=== PATIENT | male | born 1985 | race Two or more races ===

== ENCOUNTER 2019-12-16 08:30 | Inpatient (IN) | payer OTHER ==
[~2019-12-16] VITALS: Ht 180.3 cm; Wt 89.4 kg
[2020-01-09] VITALS (17 sets, daily range): BP systolic 89–138; BP diastolic 45–75
[2020-01-09] MEDS ORDERED: ceFAZolin sod 2 GM in NS 55 ML IVPB ONE (05:30)
[2020-01-09] MEDS ORDERED: fentaNYL 100 mcg/2 mL IV ONE (08:41)
[2020-01-09] MEDS ORDERED: Midazolam 2mg/2ml Inj ONE (08:41)
[2020-01-09] MEDS ORDERED: Lidocaine 1% MPF 10mg/ml 5ml ONE (08:48)
[2020-01-09] MEDS ORDERED: Gelfoam Size TOPIC ONE (09:37)
[2020-01-09] MEDS ORDERED: Thrombin 5000 units TOPIC ONE (09:37)
[2020-01-09] MEDS ORDERED: Bacitracin 50000 Units Vial ONE (09:37)
[2020-01-09] MEDS ORDERED: Rocuronium Bromide 100mg/10ml Inj IV ONE (09:41)
[2020-01-09] MEDS ORDERED: NS Irrig 1000ml ONE (10:00)
[2020-01-09] MEDS ORDERED: Sterile Water Irrig 1000ml IRRIG ONE (10:00)
[2020-01-09] MEDS ORDERED: LR 1000ml ONE (10:00)
[2020-01-09] MEDS ORDERED: Succinylcholine 20mg/ml 10ml vial ONE (10:00)
[2020-01-09] MEDS ORDERED: propofoL 1,000mg/100ml IV ONE (10:00)
--- NOTE | 2020-01-09 10:00 | Pre-Procedure Note/Attestation ---
Pre-Procedure Note/Attestation Complete Prior to Procedure Planned Procedure: not applicable Procedure Narrative: Cervical 56 anterior cervical discectomy and fusion Indications for Procedure Pre-Operative Diagnosis: C56 herniation Attestation I attest that I discussed the nature of the procedure; its benefits; risks and complications; and alternatives (and the risks and benefits of such alternatives ), prior to the procedure, with the patient (or the patient's legal parts representative). I attest that, if there was a reasonable possibility of needing a blood transfusion, the patient (or the patient's legal parts representative) was given the [facility] standardized written summary, pursuant to the [place] Blood Safety Act ([place] Health and Safety Code # 1645, as amended). I attest that I re-evaluated the patient just prior to the surgery and that there has been no change in the patient's H&P, except as documented below: Esequiel Moy MD Jan 09, 2020 10:00
--- NOTE | 2020-01-09 10:02 | Brief Operative Note ---
Immediate Post Operative Note Operative Note Chief Complaint: herniation and radiculopathy Pre-op Diagnosis: C56 herniation Procedure: Cervical 56 anterior cervical discectomy and fusion Post-op Diagnosis: same as pre-op Findings: consistent w/pre-op dx studies Surgeon: Farzaneh Contact Printer Dry Film: Khari Anesthesiologist: MYLES Anesthesia: general Specimen: none Complications: none Condition: stable Fluids: IVF Estimated Blood Loss: minimal Drains: none Implant(s) used?: Yes - Nuvasive cervical c interlock sz6, screws x3 13mm, osteocell `1cc Esequiel Moy MD Jan 09, 2020 10:02
[2020-01-09] MEDS ORDERED: Morphine Sulfate 4mg/ml Inj (IV USE ONLY) IV PRN (10:15)
[2020-01-09] MEDS ORDERED: Morphine Sulfate 2mg/ml Inj(IV/IM USE ONLY) IV PRN (10:15)
[2020-01-09] MEDS ORDERED: HYDROcodone/Acetamin 7.5/325 tab ORAL PRN ×2 (10:15)
[2020-01-09] MEDS ORDERED: HYDROcodone/Acetamin 5/325 tab ORAL PRN (10:15)
[2020-01-09] MEDS ORDERED: Metoclopramide 10mg/2ml Inj IVP PRN ×2 (10:15→11:15)
[2020-01-09] MEDS ORDERED: Naloxone 0.4mg/ml Inj IVP PRN (10:15)
[2020-01-09] MEDS ORDERED: Milk of Magnesia 30ml Ud ORAL PRN (10:15)
[2020-01-09] MEDS ORDERED: Phenylephrine 10mg/ml Vial ONE (10:36)
--- NOTE | 2020-01-09 10:50 | NUR ---
CASE MANAGEMENT:REVIEW 34 YR OLD MALE HERE FOR ELECTIVE SURGERY SI: HERNIATION AND RADICULOPATHY 97.4 61 18 113/63 98% ON RA IS: C5-6 ANTERIOR CERVICAL DISCECTOMY AND FUSION IV ANCEF Q8HRS : CURRENTLY IN SURGERY
[2020-01-09] MEDS ORDERED: Morphine Sulfate 10mg/ml Inj ONE (10:58)
[2020-01-09] MEDS ORDERED: Neostigmine 1mg/ml 10ml Inj ONE (11:00)
[2020-01-09] MEDS ORDERED: Sodium Chloride 10ml vial INJ ONE (11:00)
[2020-01-09] MEDS ORDERED: Glycopyrrolate 0.2mg/ml 1ml Vial ONE (11:01)
[2020-01-09] MEDS ORDERED: LR 1000ml 1,000 ML IVLG SCH (11:13)
--- NOTE | 2020-01-09 11:13 | Anethesia Preoperative Eval ---
Anesthesia Pre-op PMH/ROS General Date of Evaluation: Jan 09, 2020 Time of Evaluation: 10:02 Anesthesiologist: Michael ASA Score: ASA 2 Mallampati Score Class I : Soft palate, uvula, fauces, pillars visible Class II: Soft palate, uvula, fauces visible Class III: Soft palate, base of uvula visible Class IV: Only hard plate visible Mallampati Classification: Class II Surgeon: Farzaneh Diagnosis: Cervical radiculopathy Surgical Procedure: ACDF Anesthesia History: none Family History: no anesthesia problems Allergies: Coded Allergies: ACETAMINOPHEN (Verified Adverse Reaction, Intermediate, VOMTING, 01/08/20) OXYCODONE (Verified Adverse Reaction, Intermediate, VOMTING, 01/08/20) Medications: see eMAR Patient NPO?: Yes Past Medical History Cardiovascular: Denies: HTN, CAD, IA, valve dz, arrhythmia, other Pulmonary: Denies: asthma, COPD, YANNA, other Gastrointestinal/Genitourinary: Reports: GERD; Denies: CRI, ESRD, other Neurologic/Psychiatric: Reports: other; Denies: dementia, CVA, depression/anxiety, TIA Endocrine: Denies: DM, hypothyroidism, steroids, other HEENT: Denies: cataract (L), cataract (R), glaucoma, BAD RIVER BAND (L), BAD RIVER BAND (R), other Hematology/Immune: Denies: anemia, DVT, bleeding disorder, other Musculoskeletal/Integumentary: Denies: OA, RA, DJD, DDD, edema, other PMH Narrative: as above PSxH Narrative: ADR C5-C6, splenectomy,Partial nephrectomy Anesthesia Pre-op Phys. Exam Physician Exam Last Vital Signs Date Time Temp Pulse Resp B/P (MAP) Pulse Ox O2 Delivery O2 Flow Rate FiO2 01/09/20 07:50 Room Air 01/09/20 07:17 97.4 61 18 113/63 (80) 98 Constitutional: NAD Neurologic: CN 2-12 intact Cardiovascular: RRR, no M/R/G Respiratory: CTA Gastrointestinal: S/NT/ND Airway Exam Mallampati Score: Class II MO: full Neck: stiff ROM: limited Teeth: intact Dentures: no upper, no lower Anesthesia Pre-op A/P Labs see chart Risk Assessment & Plan Assessment: ASA 2 Plan: GA with ETT neuromonitring Status Change Before Surgery: No Pre-Antibiotics Drug: Ancef 2gr. Given Within 1 Hr of Incision: Yes Time Given: 10:50 Trey Anaya MD Jan 09, 2020 11:13
[2020-01-09] MEDS ORDERED: Ketorolac 30mg Inj IV PRN (11:15)
[2020-01-09] MEDS ORDERED: Meperidine 25mg/0.5ml Inj (FOR RIGORS ONLY) IV PRN (11:15)
[2020-01-09] MEDS ORDERED: DiphenhydrAMINE 50mg/ml Inj IVP PRN (11:15)
--- NOTE | 2020-01-09 12:03 | Immediate Post-Op Evaluation ---
Immediate Post-Op Evalulation Immediate Post-Op Evalulation Procedure: ACDF C5-C6 Date of Evaluation: Jan 09, 2020 Time of Evaluation: 12:02 IV Fluids: 800 Blood Products: none Estimated Blood Loss: <50 Urinary Output: none Blood Pressure Systolic: 132 Blood Pressure Diastolic: 56 Pulse Rate: 86 Respiratory Rate: 20 O2 Sat by Pulse Oximetry: 99 Temperature (Fahrenheit): 97.6 Pain Score (1-10): 1 Nausea: No Vomiting: No Complications none Patient Status: reacts, patent, extubated, none Hydration Status: adequate Trey Anaya MD Jan 09, 2020 12:03
--- NOTE | 2020-01-09 13:45 | NUR ---
NURSE NOTES: Vickie Rivas RN brought patient by bed in stable condition. Alert and oriented x4. Complain of moderate pain and pain medication given by PACU nurse. Will continue to monitor. Skin intact and dry. Surgical dressing intact and dry. IV dressing intact and dry. Belonging checked. Bed lowest position. Call light within reach. Will continue to monitor.
[2020-01-09] MEDS ORDERED: Chloraseptic Spray 20mL Bottle ORAL PRN (14:00)
[2020-01-09] MEDS: NS w/KCl 20mEq 1000ml 1,000 ML IV SCH (15:16)
[2020-01-09] MEDS ORDERED: LR 1000ml 1,000 ML IV ONE (15:30)
[2020-01-09] MEDS: Morphine Sulfate 4mg/ml Inj (IV USE ONLY) IV PRN ×3 (15:38→22:33)
--- NOTE | 2020-01-09 15:43 | NUR ---
NURSE NOTES: Patient complain of pain 9/10 on surgical site and request pain medication. BP-89/58, Pulse-70 and no signs and symptoms of distress. Spoke to regarding blood pressure and pain medication. Per : Ok to give pain medication, lactated ringers 1 liter bolus run over 1hr. Order noted and carried out.
[2020-01-09] MEDS: Docusate 100mg cap ORAL SCH (18:36)
[2020-01-09] MEDS: ceFAZolin sod 1 GM in D5W 55 ML IV SCH (18:36)
--- NOTE | 2020-01-09 18:42 | NUR ---
NURSE NOTES: Patient voided 300ml yellow urine.
--- NOTE | 2020-01-09 19:29 | Cardiology Progress Note ---
Assessment/Plan Assessment/Plan [id number] ivf pain meds home in am if all ok Objective Last 24 Hour Vital Signs Date Time Temp Pulse Resp B/P (MAP) Pulse Ox O2 Delivery O2 Flow Rate FiO2 01/09/20 15:45 97.5 70 20 99/54 (69) 95 01/09/20 14:45 97.4 70 18 89/58 (68) 97 01/09/20 14:15 97.4 76 18 100/58 (72) 97 01/09/20 13:45 97.4 75 18 106/52 (70) 97 01/09/20 13:35 97.4 73 16 101/51 97 Nasal Cannula 3 01/09/20 13:30 97.6 01/09/20 13:15 72 13 109/58 96 Nasal Cannula 3 01/09/20 13:00 75 12 101/51 96 Nasal Cannula 3 01/09/20 12:50 65 13 102/52 97 Nasal Cannula 3 01/09/20 12:40 70 13 102/62 95 Nasal Cannula 3 01/09/20 12:30 76 14 105/45 96 Nasal Cannula 3 01/09/20 12:20 76 17 104/57 96 Nasal Cannula 3 01/09/20 12:10 72 14 113/64 100 Simple Mask 6 01/09/20 12:05 80 16 117/55 99 Simple Mask 6 01/09/20 12:03 86 20 99 01/09/20 12:00 86 13 138/75 100 Simple Mask 6 01/09/20 11:54 97.4 90 14 119/66 100 Simple Mask 6 01/09/20 07:50 Room Air 01/09/20 07:17 97.4 61 18 113/63 (80) 98 Kody Diaz MD Jan 09, 2020 19:29
--- NOTE | 2020-01-09 19:35 | NUR ---
HAND-OFF: Report given to Sadie ANDERSON. Patient in stable condition.
--- NOTE | 2020-01-09 19:36 | NUR ---
NURSE NOTES: Received patient in no apparent distress. A&OX4. NC2L on. No s/s of respiratory distress noted. IV site patent and intact. Dressing on the neck noted, dry and intact. Bed in lowest position. Call light within reach. Will continue to monitor.
[2020-01-09] MEDS: HYDROmorphone 1mg/ml Carpuject IVP PRN (21:14)
[2020-01-10] VITALS: BP 97/54
[2020-01-10] MEDS: HYDROmorphone 1mg/ml Carpuject IVP PRN ×2 (00:27→06:32)
[2020-01-10] MEDS: NS w/KCl 20mEq 1000ml 1,000 ML IV SCH ×2 (00:27→10:30)
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
[2020-01-10] MEDS: ceFAZolin sod 1 GM in D5W 55 ML IV SCH ×2 (03:51→11:00)
[2020-01-10] MEDS: Morphine Sulfate 4mg/ml Inj (IV USE ONLY) IV PRN (03:52)
[2020-01-10 04:00] VITALS: BP 112/64
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
--- NOTE | 2020-01-10 06:29 | 48 Hour Post Anesthesia Eval ---
Post Anesthesia Evaluation Procedure: ACDF C5-C6 Date of Evaluation: Jan 10, 2020 Time of Evaluation: 05:51 Blood Pressure Systolic: 112 0: 84 Pulse Rate: 74 Respiratory Rate: 21 Temperature (Fahrenheit): 97.6 Airway: patent Nausea: No Vomiting: No Pain Intensity: 2 Hydration Status: adequate Cardiopulmonary Status: Stable Mental Status/LOC: patient returned to baseline Follow-up Care/Observations: 0 Post-Anesthesia Complications: 0 Follow-up care needed: N/A Mick Reynaga MD Jan 10, 2020 06:29
--- NOTE | 2020-01-10 07:23 | NUR ---
NURSE NOTES: Report received from Sadie RN, rounds made. Patient resting in high fowlers position in bed. AOx4 calm. Anterior neck, dermabond, CDI. Pain to surgical site 5/10, will medicate as ordered. IV NS +20 KCL at 100 ml/hr infusing to LAC, site asymptomatic. Bilateral SCDs off. Neuros intact, CMS +, no NT, skin warm, wiggles, pulses palpable, hand grasps/pedal pushes strong/equal 5/5. Patient anticipating discharge today. Awaiting on PT eval. Call light in reach, bed in lowest position, will continue to monitor.
--- NOTE | 2020-01-10 07:35 | NUR ---
HAND-OFF: Report given to Kerri ANDERSON. VS stable. Bed in lowest position. Call light within reach. Will continue to monitor.
[2020-01-10] MEDS: Docusate 100mg cap ORAL SCH (09:00)
--- NOTE | 2020-01-10 09:00 | NUR ---
PT EVALUATION NOTE Patient seen for initial evaluation. Patient instructed in cervical precautions and log roll technique for in/OOB. Patient required supervision with bed mobility, transfers and ambulation and verbal reminders to avoid cervical movements during functional activities. Patient will benefit from continued skilled inpatient PT intervention to increase independence with mobility tasks and to ensure adherence to cervical precautions with mobility. Anticipate discharge home once medically cleared by MD. No DME needs identified at this time. Addendum: 01/10/20 at 1200 by SHAWN VIGIL PT Amended: Links added.
--- NOTE | 2020-01-10 09:36 | Diagnostic Imaging Report ---
INDICATION: Pain, intraoperative TECHNIQUE: Intraoperative imaging Fluoroscopy time: 3.3 seconds Total dose: [id number] mGym2 Total number of images: 4 COMPARISON: None FINDINGS: Intraoperative images demonstrate surgical tool projected at the anterior aspect of the C5-6 disc. Subsequent images document a zone of anterior fusion hardware at C5-6. IMPRESSION: Intraoperative imaging, as described
[2020-01-10 09:45] VITALS: BP 109/69
[2020-01-10] MEDS ORDERED: NORCO 10-325 T1 EACH ORAL (11:04)
[2020-01-10] MEDS ORDERED: CYCLOBENZAPRINE10 MG ORAL (11:07)
--- NOTE | 2020-01-10 12:36 | NUR ---
NURSE NOTES: Discharge instructions and prescription x1 reviewed with patient, verbalized understanding. All belongings, discharge instructions, and prescription given to patient. IV discontinued as ordered, no active bleeding. Anterior neck dressing (dermabond) remains CDI. Patient ambulated down to lobby with RN in stable condition. Discharged home at 1236.
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
--- NOTE | 2020-01-27 15:02 | Diagnostic Imaging Report ---
INDICATION: Pain, intraoperative TECHNIQUE: Intraoperative imaging Fluoroscopy time: 3.3 seconds Total dose: [id number] mGym2 Total number of images: 4 COMPARISON: None FINDINGS: Intraoperative images demonstrate surgical tool projected at the anterior aspect of the C5-6 disc. Subsequent images document a zone of anterior fusion hardware at C5-6. IMPRESSION: Intraoperative imaging, as described
== END 2020-01-10 12:40 | disposition home or self-care (01) | DRG 473 ==
LOC: SDSOVERFLO 01-09 06:30 → 3E 01-09 13:45
PROC: 0RB30ZZ Excision of Cervical Vertebral Disc, Open Approach (ICD-10-PCS; principal; 2020-01-09 08:30)
PROC: 0RG10A0 Fusion of Cervical Vertebral Joint with Interbody Fusion Device, Anterior Approach, Anterior Column, Open Approach (ICD-10-PCS; principal; 2020-01-09 08:30)
DX: M50.122 Cervical disc disorder at C5-C6 level with radiculopathy (principal); V89.2XXS Person injured in unspecified motor-vehicle accident, traffic, sequela; Z85.528 Personal history of other malignant neoplasm of kidney; Z90.81 Acquired absence of spleen; Z90.5 Acquired absence of kidney; M48.02 Spinal stenosis, cervical region; Z88.6 Allergy status to analgesic agent
CPT/HCPCS: 36415; 72040; 76000; 86850; 86900; 86901; 87081; 94003; 94150; J2180; J2250; J2370; J2405; J2710